=== PATIENT | female | born 2000 | race Caucasian/White ===

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

== ENCOUNTER 2020-03-12 20:11 | Emergency (ER) | payer OTHER ==
--- NOTE | 2020-03-12 20:36 | ER Document Report ---
ED Medical Screen (RME) - General Chief Complaint: Flank Pain Stated Complaint: FLAK PAIN 8 WEEKS PREG Time Seen by Provider: 03/12/20 20:34 Primary Care Provider: ANJALI BENNETT MD [Primary Care Provider] - Follow up as needed Notes: HPI: 19-year-old female who is 8 weeks by ultrasound and follows with [facility] COMMUNITY PLANNER presenting with left flank pain today. Started around 3 AM lasted about 4 hours in the left flank region, went away most of the day then reoccurred 1 hour ago. Has not had nausea or vomiting. Pain does not change with position or movement. She denies any abdominal pain pelvic pain vaginal bleeding vaginal discharge. Patient does report some dysuria. PHYSICAL EXAMINATION: No specific CVA tenderness in the left flank. No abdominal or pelvic pain on palpation of the abdomen I have greeted and performed a rapid initial assessment of this patient. A comprehensive ED assessment and evaluation of the patient, analysis of test results and completion of medical decision making process will be conducted by an additional ED providers. Please note that clinical decision making for this patient was made during the 2019 pandemic of novel coronavirus which caused a significant strain on the healthcare system including at this particular facility. Criteria for admission discharge and level of care decisions as well as treatment decisions have necessarily changed TRAVEL OUTSIDE OF THE [place] IN LAST 30 DAYS: No - Related Data Allergies/Adverse Reactions: No Known Allergies Allergy (Verified 11/14/18 23:49) Home Medications: mvi Past Medical History - Social History Chew tobacco use (# tins/day): No Frequency of alcohol use: None Drug Abuse: None Physical Exam - Vital signs Vitals: Temp Pulse Resp BP Pulse Ox 98.2 F 101 H 16 125/88 H 99 03/12/20 20:17 03/12/20 20:17 03/12/20 20:17 03/12/20 20:17 03/12/20 20:17 Course - Vital Signs Vital signs: Temp Pulse Resp BP Pulse Ox 98.2 F 101 H 16 125/88 H 99 03/12/20 20:30 03/12/20 20:17 03/12/20 20:17 03/12/20 20:17 03/12/20 20:17 Doctor's Discharge - Discharge Referrals: ANJALI BENNETT MD [Primary Care Provider] - Follow up as needed
[2020-03-12 21:05] LABS: ABSOLUTE BASOPHILS # (AUTO) 0.1 10^3/uL (0.0-0.2); ABSOLUTE LYMPHOCYTES (AUTO) 1.9 10^3/uL (0.5-4.7); ABSOLUTE MONOCYTES (AUTO) 0.7 10^3/uL (0.1-1.4); BASOPHILS % (AUTO) 0.7 % (0-2); EOSINOPHILS % (AUTO) 0.3 % (0-6); HEMATOCRIT 41.6 % (36.0-47.0); HEMOGLOBIN 14.5 g/dL (12.0-15.5); LYMPHOCYTES % (AUTO) 19.6 % (13-45); MEAN CORPUSCULAR HEMOGLOBIN 29.2 pg (27.0-33.4); MEAN CORPUSCULAR HGB CONC 34.9 g/dL (32.0-36.0); MEAN CORPUSCULAR VOLUME 84 fl (80-97); MONOCYTES % (AUTO) 7.2 % (3-13); PLATELET COUNT 260 10^3/uL (150-450); RED BLOOD COUNT 4.98 10^6/uL (3.72-5.28); RED CELL DISTRIBUTION WIDTH 12.6 % (11.5-14.0); SEGMENTED NEUTROPHILS % (AUTO) 72.2 % (42-78); TOTAL CELLS COUNTED % (AUTO) 100 %; WHITE BLOOD COUNT 9.6 10^3/uL (4.0-10.5)
[2020-03-12 21:22] LABS: ALBUMIN 4.2 g/dL (3.7-5.6); ALKALINE PHOSPHATASE 92 U/L (50-135); ANION GAP 7 (5-19); ASPARTATE AMINO TRANSFERASE 19 U/L (5-30); BILIRUBIN,DIRECT 0.1 mg/dL (0.0-0.4); BILIRUBIN,TOTAL 0.4 mg/dL (0.2-1.3); BLOOD UREA NITROGEN 13 mg/dL (7-20); CARBON DIOXIDE 26 mmol/L (22-30); CHLORIDE 101 mmol/L (98-107); GLUCOSE 111 mg/dL (75-110); POTASSIUM 3.7 mmol/L (3.6-5.0); TOTAL PROTEIN 7.4 g/dL (6.3-8.2)
[2020-03-12 21:34] LABS: APPEARANCE,URINE SLIGHTLY-CLOUDY; BILIRUBIN,URINE NEGATIVE (NEGATIVE); COLOR,URINE YELLOW; GLUCOSE, URINE NEGATIVE (NEGATIVE); KETONES,URINE NEGATIVE (NEGATIVE); LEUKOCYTE ESTERASE,URINE NEGATIVE (NEGATIVE); NITRITE,URINE NEGATIVE (NEGATIVE); PROTEIN,URINE 30 mg/dL (NEGATIVE); URINE SPECIFIC GRAVITY 1.021; UROBILINOGEN,URINE NEGATIVE mg/dL (<2.0)
[2020-03-12] MEDS ORDERED: METOCLOPRAMIDE HCL INJ/PF 10 MG/2 ML SDV IV ONE (21:53)
[2020-03-12] MEDS ORDERED: MORPHINE SULFATE 10 MG/ML INJ IV ONE (21:53)
[2020-03-12] MEDS ORDERED: DIPHENHYDRAMINE HCL 50 MG/ML VIAL IV ONE (21:53)
--- NOTE | 2020-03-12 21:57 | ER Document Report ---
ED GI/ - General Chief Complaint: Flank Pain Stated Complaint: FLAK PAIN 8 WEEKS PREG Time Seen by Provider: 03/12/20 20:34 Primary Care Provider: ANJALI BENNETT MD [ACTIVE STAFF] - 03/14/20 Notes: Patient is a 19-year-old female, at 8 weeks gestation by first trimester ultrasound, who comes emergency department for chief complaint of sharp left flank pain that initially happened at 3 AM last night, lasted for several hours, complete resolved until about 8 PM this evening when she started having sharp pa in again. She states pain slightly radiates to her left side but does not radiate to her abdomen. She denies vaginal bleeding or discharge, fever/chills, vomiting, injury. She states the last time she urinated it was slightly uncomfortable. She denies history of kidney stones or family history of kidney stones. She denies any surgeries, daily medications, or diagnosed medical history. TRAVEL OUTSIDE OF THE [place] IN LAST 30 DAYS: No - Related Data Allergies/Adverse Reactions: No Known Allergies Allergy (Verified 11/14/18 23:49) Home Medications: mvi Past Medical History - General Information source: Patient - Social History Smoking Status: Never Smoker Chew tobacco use (# tins/day): No Frequency of alcohol use: None Drug Abuse: None Lives with: Family Family History: Reviewed & Not Pertinent Patient has homicidal ideation: No - Medical History Medical History: Negative Surgical Hx: Negative - Immunizations Immunizations up to date: Yes Hx Diphtheria, Pertussis, Tetanus Vaccination: Yes Review of Systems - Review of Systems Constitutional: No symptoms reported EENT: No symptoms reported Cardiovascular: No symptoms reported Respiratory: No symptoms reported Gastrointestinal: See HPI Genitourinary: See HPI Female Genitourinary: See HPI Musculoskeletal: No symptoms reported Skin: No symptoms reported Hematologic/Lymphatic: No symptoms reported Neurological/Psychological: No symptoms reported Physical Exam - Vital signs Vitals: Temp Pulse Resp BP Pulse Ox 98.2 F 101 H 16 125/88 H 99 03/12/20 20:17 03/12/20 20:17 03/12/20 20:17 03/12/20 20:17 03/12/20 20:17 - Notes Notes: GENERAL: Patient occasionally shifts uncomfortably as if in pain but she does not appear to be in severe distress. Alert, interacts well HEAD: Normocephalic, atraumatic. EYES: Pupils equal, round, and reactive to light. Extraocular movements intact. ENT: Oral mucosa moist, tongue midline. Oropharynx unremarkable. Airway patent. NECK: Full range of motion. Supple. Trachea midline. No lymphadenopathy. LUNGS: Clear to auscultation bilaterally, no wheezes, rales, or rhonchi. No respiratory distress. Non-tender chest wall. HEART: Regular rate and rhythm. No murmur ABDOMEN: Soft, non-tender. Non-distended. Bowel sounds present in all 4 quadrants. No guarding or rigidity. GENITOURINARY: Deferred EXTREMITIES: Moves all 4 extremities spontaneously. No edema, normal radial and dorsalis pedis pulses bilaterally. No cyanosis. BACK: There is some mild left-sided CVA tenderness. No cervical, thoracic, lumbar midline tenderness. No saddle anesthesia, normal distal neurovascular exam. Moves all extremities in full range of motion. NEUROLOGICAL: Alert and oriented x3. Normal speech. Cranial nerves II through XII grossly intact. Strength 5/5 in all extremities. PSYCH: Normal affect, normal mood. SKIN: Warm, dry, normal turgor. No rashes or lesions noted. Course - Re-evaluation Re-evalutation: Patient initially somewhat uncomfortable in appearance, she does appear to have mild left CVA tenderness on my exam, abdomen is soft and benign. She is reporting nausea now. She has not had vomiting, she denies fever. She reports some dysuria. CBC, chemistry unremarkable. Urinalysis shows hematuria and a few white blood cells. Left sided mild hydronephrosis noted on the ultrasound. Based on her presentation I suspect patient is passing a kidney stone, most likely a small kidney stone based on her well appearance and mild hydronephrosis. Hopefully this is not an obstructing stone. Discussed with patient, CAT scan deferred because of early . Patient will be placed on antibiotics because of her dysuria and a few white blood cells as a precaution after discussing options . Patient states that she is ready to go home but she agrees to follow-up closely with ETHNIC STUDIES PROFESSOR and especially urology. I discussed strict return precautions with patient and significant other. I did provide with pain medication and patient will use only if absolutely necessary. They state appreciation and agreement. Stable, well-appearing, asymptomatic at time of discharge. Patient active duty and therefore given printed scripts instead of faxing the controlled substance. - Vital Signs Vital signs: Temp Pulse Resp BP Pulse Ox 98.3 F 81 16 123/70 99 03/12/20 23:47 03/12/20 23:47 03/12/20 23:47 03/12/20 23:47 03/12/20 23:47 - Laboratory Results Result Diagrams: 03/12/20 20:43 03/12/20 20:43 Laboratory Results Interpreted: 03/12/20 03/12/20 20:43 21:20 Sodium 134.1 L Glucose 111 H Beta HCG, Quant 151805.00 H Urine Protein 30 H Urine Blood LARGE H Critical Laboratory Results Reviewed: No Critical Results - Radiology Results Critical Radiology Results Reviewed: No Critical Results Discharge - Discharge Clinical Impression: Flank pain Hematuria Qualifiers: Hematuria type: other microscopic Qualified Code(s): R31.29 - Other microscopic hematuria Condition: Stable Disposition: HOME, SELF-CARE Additional Instructions: Based on your symptoms, the small amount of swelling in your left kidney, and the microscopic blood in your urine I believe that you are passing a kidney stone. This most likely will pass on its own. Please call the urology referral listed below on Saturday for close follow-up and additional management. Follow-up with your ETHNIC STUDIES PROFESSOR as well. Take the pain medication only if needed, otherwise you can take Tylenol and Benadryl for symptoms. You can take Reglan for nausea. Drink plenty of fluids. We are covering you with an antibiotic because of your urinary symptoms and some white blood cells in the urine. Return for any concerning symptoms including fever/chills, severe worsening pain, uncontrolled vomiting, or any other concerning or worsening symptoms. [facility] [address] [place] [address] [phone] [facility] [address] [place] [address] [phone] Prescriptions: Cephalexin Monohydrate [Keflex 500 mg Capsule] 500 mg PO BID 7 Days #14 capsule Morphine Sulfate [Morphine Ir 15 Mg Tablet] 15 mg PO TID PRN #12 tablet PRN Reason: Metoclopramide HCl [Reglan] 5 mg PO ASDIR PRN #30 tablet PRN Reason: Referrals: ANJALI BENNETT MD [ACTIVE STAFF] - 03/14/20
--- NOTE | 2020-03-12 22:40 | RADIOLOGY REPORT (SQ) ---
EXAM DESCRIPTION: US RETROPERITONEUM LIMITED COMPLETED DATE/TME: 03/12/2020 22:16 CLINICAL HISTORY: 19 years Female, left flank pain eval for hydro/stone Comparison: None. LIMITATIONS: None. FINDINGS: Mildly enlarged left renal collecting system probably indicates mild hydronephrosis. 11-cm right kidney, 13-cm left kidney, decompressed/nonvisualized urinary bladder, and visualized vasculature appear otherwise of normal size, shape, echotexture, and vascularity. IMPRESSION: Mild left hydronephrosis. Decompressed/nonvisualized bladder.
[2020-03-12] MEDS ORDERED: HYDROCODONE/ACETAMINOPHEN 5-325 MG (6 TAB/ER DISP) PO PRN (23:13)
[2020-03-12 23:49] VITALS: BP 123/70
== END 2020-03-12 23:47 | disposition home or self-care (01) ==
LOC: ER 20:11
DX: O26.91 Pregnancy related conditions, unspecified, first trimester (principal); R10.9 Unspecified abdominal pain; R31.29 Other microscopic hematuria; Z3A.08 8 weeks gestation of pregnancy
CPT/HCPCS: 99285; 96374; 96375; 36415; 87086; 84702; 85025; 80053; 81001; 76775; J1200; J2765; J2270